=== PATIENT | male | born 1945 | race Caucasian/White ===

== ENCOUNTER 2021-06-14 16:30 | Emergency (ER) | payer MEDICARE, OTHER ==
--- NOTE | 2021-06-14 16:38 | EDM.PDOC ---
ED HPI GENERAL MEDICAL PROBLEM - General Chief Complaint: Trauma Stated Complaint: FALL Time Seen by Provider: 06/14/21 16:38 Source of Information: Reports: Patient - History of Present Illness INITIAL COMMENTS - FREE TEXT/NARRATIVE: Bradford, 75-year-old male, presents by ambulance after he experienced a fall in his basement stairway. States he was carrying 3 baskets/bags of frozen corn to the basement freezer when he was roughly 3 steps from the bottom missing a step and falling. He struck his leg as he went down with his left leg going underneath him as well as the left side of his posterior thoracic cage. He states he bumped his head but that is not of major concern. He has rib pain to deep breath, coughing, and motion. He denies any other contributing factors other than alcohol to which he states he may have had 6 beers today. He is appropriate to my questioning and denies any other contributing factors. Onset: Today, Sudden Duration: Minutes: - Related Data Allergies Allergy/AdvReac Type Severity Reaction Status Date / Time No Known Drug Allergies Allergy NKDA Verified 06/14/21 16:38 Home Meds: Home Meds Aspirin 325 mg PO DAILY 02/01/15 [History] Glucosamine [Glucosamine Sulfate] 500 mg PO DAILY 02/01/15 [History] Lisinopril 1 tab PO DAILY 02/01/15 [History] Metoprolol Succinate [Toprol XL] 25 mg PO DAILY 02/01/15 [History] Multivitamin with Minerals [Multiple Vitamin] 1 tab PO DAILY 02/01/15 [History] Past Medical History HEENT History: Reports: Impaired Vision Cardiovascular History: Reports: Hypertension Respiratory History: Reports: COPD Gastrointestinal History: Reports: Diverticulosis Genitourinary History: Reports: None Musculoskeletal History: Reports: Fracture (ribs in the past) Neurological History: Reports: None Psychiatric History: Reports: None Endocrine/Metabolic History: Reports: None Oncologic (Cancer) History: Reports: None Dermatologic History: Reports: None - Past Imaging History Past Imaging History: Reports: Ultrasound, Xray Social & Family History - Family History Family Medical History: No Pertinent Family History ED ROS GENERAL - Review of Systems Review Of Systems: Comprehensive ROS is negative, except as noted in HPI. ED EXAM, GENERAL - Physical Exam Exam: See Below Free Text/Narrative:: Alert, oriented, in mild painful distress to deep breathing. There is no cyanosis nor pallor noted. HEENT has a small abrasion contusion to the left forehead with no active bleeding nor blood loss noted. His glasses are intact with no damage. EOM is intact. There is trace horizontal nystagmus likely related to his alcohol. Cerumen in the canals but nonobstructive with negative for hemotympanum, negative for any membrane issue, negative for any membrane issue, negative for any membrane issue. Oropharynx is free of any lesions or discharge. Neck is soft supple no lymphadenopathy negative Nexus criteria for cervical spine injury. Thorax is raspy I attribute to his smoking limited inspiration secondary of pain to the left chest wall. I do not appreciate any fremitus nor crepitus to motion but tenderness is noted. Cardiac is S1 is 2 I do not appreciate murmur. No flank pain no abdominal discomfort. There is an abrasion to the left patellar region and a hematoma slightly under the left patella to the lateral aspect of the tibia. there is no discomfort and full range of motion is noted to the extremities. He has no difficulty in the ambulation process and standing in the radiology department for the chest/rib films. Course - Orders/Labs/Meds Orders: Active Orders 24 hr Category Date Time Status Ribs 2V w Chest Lt [CR] Stat Exams 06/14/21 16:49 Ordered DME for Discharge [COMM] Stat Oth 06/14/21 17:32 Ordered Departure - Departure Time of Disposition: 17:39 Disposition: Home, Self-Care 01 Condition: Good Clinical Impression: Closed rib fracture, Multiple contusions, Abrasion, Alcohol use - Discharge Information *PRESCRIPTION DRUG MONITORING PROGRAM REVIEWED*: Not Applicable *COPY OF PRESCRIPTION DRUG MONITORING REPORT IN PATIENT MELISSA: Not Applicable Referrals: PCP,Unknown [Primary Care Provider] - Melissa Wagner PA-C [Physician] - Forms: ED Department Discharge Additional Instructions: Chest x-ray rib x-rays show you have a fracture of the left ribs. You will be placed in a binder to benefit your comfort while you are going home and when you have to be moving about. You have to remove this binder when you sleep as well is when you are in active as it highly increases the risk of pneumonia, especially in a smoker. You just try to decrease your smoking as much as possible. Continue all your medications as you have been directed. You need to apply heat or ice to this for comfort. You need to contact your clinic for follow-up visit in the next week. You should be seen sooner if you should develop an increased cough, fever, or chills, or any other evidence of respiratory concerns including shortness of breath. No further alcohol this evening. - Problem List & Annotations (1) Closed rib fracture SNOMED Code(s): 54104664 Code(s): S22.39XA - FRACTURE OF ONE RIB, UNSP SIDE, INIT FOR CLOS FX Status: Acute Current Visit: Yes (2) Multiple contusions SNOMED Code(s): 349515603 Code(s): T07.XXXA - UNSPECIFIED MULTIPLE INJURIES, INITIAL ENCOUNTER Status: Acute Priority: Medium Current Visit: Yes (3) Abrasion SNOMED Code(s): 494316163 Code(s): T14.8XXA - OTHER INJURY OF UNSPECIFIED BODY REGION, INITIAL ENCOUNTER Status: Acute Priority: Medium Current Visit: Yes (4) Alcohol use SNOMED Code(s): 666194 Code(s): Z72.89 - OTHER PROBLEMS RELATED TO LIFESTYLE Status: Acute Priority: Medium Current Visit: Yes - Problem List Review Problem List Initiated/Reviewed/Updated: Yes - My Orders Last 24 Hours: My Active Orders 06/14/21 16:49 Ribs 2V w Chest Lt [CR] Stat 06/14/21 17:32 DME for Discharge [COMM] Stat - Assessment/Plan Last 24 Hours: My Active Orders 06/14/21 16:49 Ribs 2V w Chest Lt [CR] Stat 06/14/21 17:32 DME for Discharge [COMM] Stat Plan: Chest x-ray rib x-rays show you have a fracture of the left ribs. You will be placed in a binder to benefit your comfort while you are going home and when you have to be moving about. You have to remove this binder when you sleep as well is when you are in active as it highly increases the risk of pneumonia, especially in a smoker. You just try to decrease your smoking as much as possible. Continue all your medications as you have been directed. You need to apply heat or ice to this for comfort. You need to contact your clinic for follow-up visit in the next week. You should be seen sooner if you should develop an increased cough, fever, or chills, or any other evidence of respiratory concerns including shortness of breath. No further alcohol this evening.
--- NOTE | 2021-06-14 17:54 | CR ---
[id number] RAD/RAD Ribs Left W PA Chest EXAM: RAD Ribs Left W PA Chest INDICATION: FALL, RIB PAIN. COMPARISON: None. DISCUSSION: Acute displaced and angulated left third and fifth rib fractures. No pneumothorax or pleural fluid is currently identified. Borderline hyperinflation. The lungs. The heart size. IMPRESSION: 1. Mildly displaced and angulated left third and fifth rib fractures. Brooks Mora MD 06/14/21 [id number] Thank you for allowing us to participate in the care of your patient.
[2021-06-14 18:45] VITALS: BP 135/76; PULSE 70
== END 2021-06-14 18:20 | disposition home or self-care (01) ==
LOC: KA.ED 16:30
DX: S22.42XA Multiple fractures of ribs, left side, initial encounter for closed fracture (principal); S80.02XA Contusion of left knee, initial encounter; S00.83XA Contusion of other part of head, initial encounter; H61.23 Impacted cerumen, bilateral; I10 Essential (primary) hypertension; J44.9 Chronic obstructive pulmonary disease, unspecified; Z79.82 Long term (current) use of aspirin; Z79.899 Other long term (current) drug therapy; Z72.89 Other problems related to lifestyle; W10.9XXA Fall (on) (from) unspecified stairs and steps, initial encounter
CPT/HCPCS: 71101-LT; 99283; 99284-25

== ENCOUNTER 2023-08-28 18:24 | Inpatient (IN) | payer MEDICARE, OTHER ==
[2023-08-28] MEDS ORDERED: Sodium Chloride 0.9% 10 ML Syringe FLUSH PRN (18:36)
[2023-08-28 18:46] LABS: BASOPHILS ABSOLUTE AUTO 0.07 10^3/uL (0.00-0.10); BASOPHILS PERCENT AUTO 0.5 % (0.0-1.0); EOSINOPHILS PERCENT AUTO 17.7 % (1.0-3.0); HEMATOCRIT 48.1 % (40.0-52.0); HEMOGLOBIN 16.5 g/dL (13.0-17.0); IMMATURE GRAN ABSOLUTE AUTO 0.07 10^3/uL (0.00-0.50); IMMATURE GRAN PERCENT AUTO 0.5 % (0.0-5.0); LYMPHOCYTES ABSOLUTE AUTO 1.83 10^3/uL (1.00-4.00); MEAN CORPUSCULAR HEMOGLOBIN 33.5 pg (27.0-31.0); MEAN CORPUSCULAR HGB CONC 34.3 g/dL (32.0-36.0); MEAN CORPUSCULAR VOLUME 97.8 fL (82.0-92.0); MEAN PLATELET VOLUME 8.6 fL (7.4-10.4); MONOCYTES PERCENT AUTO 10.6 % (2.0-8.0); NEUTROPHILS ABSOLUTE AUTO 8.13 10^3/uL (2.50-7.00); NEUTROPHILS PERCENT AUTO 57.7 % (50.0-70.0); PLATELET COUNT,PLT 320 10^3/uL (150-400); RED BLOOD CELL COUNT 4.92 10^6/uL (4.50-6.00); RED CELL DISTRIBUTION WIDTH 12.8 % (11.5-14.5)
[2023-08-28 18:54] LABS: ALANINE AMINOTRANSFERASE,ALT 59 U/L (14-63); ALKALINE PHOSPHATASE 70 U/L (46-116); ANION GAP 16.1 mmol/L (5-15); ASPARTATE AMNIOTRANSFERASE,AST 29 U/L (15-37); BILIRUBIN TOTAL 2.2 mg/dL (0.2-1.0); BLOOD UREA NITROGEN,BUN 7 mg/dL (7-18); CHLORIDE,CL 93 mmol/L (98-107); CREATININE 0.66 mg/dL (0.51-1.17); GLUCOSE RANDOM 111 mg/dL (70-140); POTASSIUM,K 4.1 mmol/L (3.5-5.1); PROTEIN TOTAL,TP 7.9 g/dL (6.4-8.2); SODIUM,NA 129 mmol/L (136-145)
[2023-08-28 19:10] LABS: B-TYPE NATRIURETIC PEPTIDE,BNP 10 pg/mL (0-100)
[2023-08-28 19:23] LABS: ESTIMATED GFR 95 mL/min (>=60)
[2023-08-28] MEDS ORDERED: Sodium Chloride 0.9% 1,000 ML IV ONE ×2 (19:45→21:52)
[2023-08-28] MEDS ORDERED: Losartan 50 MG Tab PO ONE (19:46)
[2023-08-28] MEDS ORDERED: Metoprolol Succinate 25 MG Tab.ER PO ONE (19:47)
[2023-08-28 20:16] LABS: CORONAVIRUS COVID-19 NAA NEGATIVE (NEGATIVE); INFLUENZA A NAA NEGATIVE (NEGATIVE); INFLUENZA B NAA NEGATIVE (NEGATIVE); RESPIRATORY SYNCYTIAL VIR NAA NEGATIVE (NEGATIVE)
[2023-08-28] MEDS ORDERED: Albuterol/Ipratropium 3.0-0.5 MG/3 ML Neb Soln NEB ONE (20:24)
[2023-08-28] MEDS ORDERED: methylPREDNISolone Sodium Succinate 125 MG/2 ML SDV IVPUSH ONE (20:42)
[2023-08-29] MEDS ORDERED: Acetaminophen 325 MG Tab PO PRN (00:04)
[2023-08-29] MEDS ORDERED: Ondansetron 4 MG/2 ML SDV IV PRN (00:04)
[2023-08-29] MEDS: Albuterol/Ipratropium 3.0-0.5 MG/3 ML Neb Soln NEB PRN ×5 (01:12→23:48)
[2023-08-29] MEDS: methylPREDNISolone Sodium Succinate 125 MG/2 ML SDV IVPUSH SCH ×3 (02:58→18:20)
[2023-08-29 07:22] LABS: EOSINOPHILS ABSOLUTE AUTO 0.01 10^3/uL (0.10-0.30); EOSINOPHILS PERCENT AUTO 0.2 % (1.0-3.0); HEMATOCRIT 41.2 % (40.0-52.0); HEMOGLOBIN 14.2 g/dL (13.0-17.0); IMMATURE GRAN ABSOLUTE AUTO 0.03 10^3/uL (0.00-0.50); IMMATURE GRAN PERCENT AUTO 0.6 % (0.0-5.0); LYMPHOCYTES ABSOLUTE AUTO 0.26 10^3/uL (1.00-4.00); LYMPHOCYTES PERCENT AUTO 4.9 % (20.0-40.0); MEAN CORPUSCULAR HEMOGLOBIN 33.8 pg (27.0-31.0); MEAN CORPUSCULAR HGB CONC 34.5 g/dL (32.0-36.0); MEAN CORPUSCULAR VOLUME 98.1 fL (82.0-92.0); MEAN PLATELET VOLUME 8.4 fL (7.4-10.4); MONOCYTES ABSOLUTE AUTO 0.05 10^3/uL (0.10-0.80); MONOCYTES PERCENT AUTO 0.9 % (2.0-8.0); NEUTROPHILS PERCENT AUTO 93.4 % (50.0-70.0); PLATELET COUNT,PLT 254 10^3/uL (150-400); RED CELL DISTRIBUTION WIDTH 12.5 % (11.5-14.5); WHITE BLOOD CELL COUNT,WBC 5.35 10^3/uL (5.00-10.00)
[2023-08-29 07:41] LABS: ANION GAP 12.8 mmol/L (5-15); CALCIUM 8.7 mg/dL (8.7-10.3); CARBON DIOXIDE,CO2 25.7 mmol/L (21.0-32.0); CREATININE 0.64 mg/dL (0.51-1.17); EST CRCL DRUG DOSING (CG) 89.06 mL/min; POTASSIUM,K 4.5 mmol/L (3.5-5.1)
[2023-08-29 07:44] LABS: PROTEIN TOTAL,TP 6.4 g/dL (6.4-8.2)
[2023-08-29 07:45] LABS: A/G RATIO 0.95; ALBUMIN 3.12 g/dL (3.00-4.80); BILIRUBIN DIRECT 0.4 mg/dL (0.0-0.2); BILIRUBIN INDIRECT 1.2 mg/dL; BILIRUBIN TOTAL 1.6 mg/dL (0.2-1.0)
[2023-08-29] MEDS: Aspirin 81 MG Tab.EC PO SCH (08:59)
[2023-08-29] MEDS: Enoxaparin 40 MG/0.4 ML Syringe SUBCUT SCH (08:59)
[2023-08-29] MEDS: Metoprolol Succinate 25 MG Tab.ER PO SCH (09:10)
[2023-08-29] MEDS: Losartan 50 MG Tab PO SCH (09:11)
[2023-08-29] MEDS: amLODIPine 5 MG Tab PO SCH (09:11)
[2023-08-29] MEDS: guaiFENesin/Dextromethorphan 100-10 MG/5 ML Soln 5 ML Cup PO PRN ×2 (19:52→23:48)
[2023-08-29] MEDS ORDERED: Donepezil 10 MG Tab PO SCH (21:00)
[2023-08-30] MEDS: methylPREDNISolone Sodium Succinate 125 MG/2 ML SDV IVPUSH SCH (06:03)
[2023-08-30] MEDS: Albuterol/Ipratropium 3.0-0.5 MG/3 ML Neb Soln NEB PRN (07:31)
[2023-08-30] MEDS: Losartan 50 MG Tab PO SCH (08:29)
[2023-08-30] MEDS: Metoprolol Succinate 25 MG Tab.ER PO SCH (08:30)
[2023-08-30] MEDS: amLODIPine 5 MG Tab PO SCH (08:30)
[2023-08-30] MEDS: Aspirin 81 MG Tab.EC PO SCH (08:30)
[2023-08-30] MEDS: Enoxaparin 40 MG/0.4 ML Syringe SUBCUT SCH (08:30)
[2023-08-30 11:22] VITALS: BP 127/65; PULSE 87
== END 2023-08-30 11:52 | disposition home or self-care (01) | DRG 189 ==
LOC: KA.ED 18:24 → KA.MS 22:53 → UNDOADMIN 23:00
PROVIDERS: ADMIT Internal Medicine; ATTEND Internal Medicine
DX: J96.01 Acute respiratory failure with hypoxia (principal); J44.1 Chronic obstructive pulmonary disease with (acute) exacerbation; E86.0 Dehydration; Z20.822 Contact with and (suspected) exposure to COVID-19; I10 Essential (primary) hypertension; E87.1 Hypo-osmolality and hyponatremia; F17.210 Nicotine dependence, cigarettes, uncomplicated; E87.8 Other disorders of electrolyte and fluid balance, not elsewhere classified; E80.6 Other disorders of bilirubin metabolism; Z79.82 Long term (current) use of aspirin; Z79.899 Other long term (current) drug therapy; Z79.51 Long term (current) use of inhaled steroids; Z98.49 Cataract extraction status, unspecified eye; Z98.890 Other specified postprocedural states; Z11.52 Encounter for screening for COVID-19
CPT/HCPCS: 0241U; 36415; 71045; 80048; 80053; 80076; 83605; 83880; 84484; 85025; 85379; 87040; 87070; 87205; 93005; 93010; 94640; 96361; 96374; 99284; 99285-25; A9270-GY; J1650; J2930; J3490; J7030; J7620-GY; Q3014

== ENCOUNTER 2024-04-04 21:00 | Observation (INO) | payer MEDICARE, OTHER ==
[2024-04-04] MEDS ORDERED: Sodium Chloride 0.9% 10 ML Syringe FLUSH PRN (21:26)
[2024-04-04 21:36] LABS: BASOPHILS ABSOLUTE AUTO 0.05 10^3/uL (0.00-0.10); BASOPHILS PERCENT AUTO 0.5 % (0.0-1.0); EOSINOPHILS ABSOLUTE AUTO 0.79 10^3/uL (0.10-0.30); HEMATOCRIT 46.4 % (40.0-52.0); HEMOGLOBIN 16.6 g/dL (13.0-17.0); IMMATURE GRAN ABSOLUTE AUTO 0.05 10^3/uL (0.00-0.50); IMMATURE GRAN PERCENT AUTO 0.5 % (0.0-5.0); LYMPHOCYTES ABSOLUTE AUTO 1.28 10^3/uL (1.00-4.00); MEAN CORPUSCULAR HEMOGLOBIN 34.3 pg (27.0-31.0); MEAN CORPUSCULAR HGB CONC 35.8 g/dL (32.0-36.0); MEAN CORPUSCULAR VOLUME 95.9 fL (82.0-92.0); MEAN PLATELET VOLUME 8.3 fL (7.4-10.4); MONOCYTES ABSOLUTE AUTO 1.11 10^3/uL (0.10-0.80); MONOCYTES PERCENT AUTO 11.2 % (2.0-8.0); NEUTROPHILS ABSOLUTE AUTO 6.59 10^3/uL (2.50-7.00); NEUTROPHILS PERCENT AUTO 66.8 % (50.0-70.0); PLATELET COUNT,PLT 272 10^3/uL (150-400); RED BLOOD CELL COUNT 4.84 10^6/uL (4.50-6.00); RED CELL DISTRIBUTION WIDTH 12.5 % (11.5-14.5); WHITE BLOOD CELL COUNT,WBC 9.87 10^3/uL (5.00-10.00)
[2024-04-04] MEDS: Albuterol/Ipratropium 3.0-0.5 MG/3 ML Neb Soln NEB ONE (21:45)
[2024-04-04] MEDS: methylPREDNISolone Sodium Succinate 125 MG/2 ML SDV IVPUSH ONE (21:49)
[2024-04-04] MEDS: Sodium Chloride 0.9% 1,000 ML IV ONE (21:49)
[2024-04-04 21:56] LABS: ALANINE AMINOTRANSFERASE,ALT 66 U/L (14-63); ALBUMIN 4.19 g/dL (3.40-5.00); ALKALINE PHOSPHATASE 75 U/L (46-116); ANION GAP 14.6 mmol/L (5-15); ASPARTATE AMNIOTRANSFERASE,AST 41 U/L (15-37); BILIRUBIN TOTAL 1.8 mg/dL (0.2-1.0); BLOOD UREA NITROGEN,BUN 7 mg/dL (7-18); CALCIUM 9.1 mg/dL (8.7-10.3); CARBON DIOXIDE,CO2 24.6 mmol/L (21.0-32.0); CHLORIDE,CL 92 mmol/L (98-107); CREATININE 0.69 mg/dL (0.51-1.17); ESTIMATED GFR 94 mL/min (>=60); GLUCOSE RANDOM 120 mg/dL (70-140); POTASSIUM,K 4.2 mmol/L (3.5-5.1); PROTEIN TOTAL,TP 8.3 g/dL (6.4-8.2); SODIUM,NA 127 mmol/L (136-145)
[2024-04-04 21:59] LABS: B-TYPE NATRIURETIC PEPTIDE,BNP 6 pg/mL (0-100)
[2024-04-04] MEDS: Sodium Chloride 0.9% 1,000 ML IV SCH (23:34)
[2024-04-05] MEDS ORDERED: Acetaminophen 325 MG Tab PO PRN (02:00)
[2024-04-05] MEDS ORDERED: Albuterol/Ipratropium 3.0-0.5 MG/3 ML Neb Soln NEB PRN (02:00)
[2024-04-05] MEDS: Sodium Chloride 0.9% 1,000 ML IV SCH (02:21)
[2024-04-05] MEDS ORDERED: hydrALAZINE 20 MG/ML SDV IVPUSH PRN (03:52)
[2024-04-05 07:28] LABS: BASOPHILS ABSOLUTE AUTO 0.01 10^3/uL (0.00-0.10); BASOPHILS PERCENT AUTO 0.2 % (0.0-1.0); EOSINOPHILS ABSOLUTE AUTO 0.01 10^3/uL (0.10-0.30); EOSINOPHILS PERCENT AUTO 0.2 % (1.0-3.0); HEMOGLOBIN 14.8 g/dL (13.0-17.0); IMMATURE GRAN ABSOLUTE AUTO 0.02 10^3/uL (0.00-0.50); IMMATURE GRAN PERCENT AUTO 0.4 % (0.0-5.0); LYMPHOCYTES ABSOLUTE AUTO 0.34 10^3/uL (1.00-4.00); LYMPHOCYTES PERCENT AUTO 6.8 % (20.0-40.0); MEAN CORPUSCULAR HEMOGLOBIN 33.6 pg (27.0-31.0); MEAN CORPUSCULAR HGB CONC 35.2 g/dL (32.0-36.0); MEAN CORPUSCULAR VOLUME 95.5 fL (82.0-92.0); MEAN PLATELET VOLUME 8.6 fL (7.4-10.4); MONOCYTES ABSOLUTE AUTO 0.05 10^3/uL (0.10-0.80); NEUTROPHILS ABSOLUTE AUTO 4.55 10^3/uL (2.50-7.00); NEUTROPHILS PERCENT AUTO 91.4 % (50.0-70.0); PLATELET COUNT,PLT 252 10^3/uL (150-400); RED CELL DISTRIBUTION WIDTH 12.5 % (11.5-14.5); WHITE BLOOD CELL COUNT,WBC 4.98 10^3/uL (5.00-10.00)
[2024-04-05 07:56] LABS: ALBUMIN 3.42 g/dL (3.40-5.00); ANION GAP 12.4 mmol/L (5-15); BILIRUBIN TOTAL 1.3 mg/dL (0.2-1.0); CALCIUM 8.3 mg/dL (8.7-10.3); CARBON DIOXIDE,CO2 25.2 mmol/L (21.0-32.0); CREATININE 0.64 mg/dL (0.51-1.17); EST CRCL DRUG DOSING (CG) 89.06 mL/min; POTASSIUM,K 4.6 mmol/L (3.5-5.1); PROTEIN TOTAL,TP 7.3 g/dL (6.4-8.2)
[2024-04-05] MEDS: amLODIPine 5 MG Tab PO SCH (08:18)
[2024-04-05] MEDS: Metoprolol Succinate 25 MG Tab.ER PO SCH (08:18)
[2024-04-05] MEDS: predniSONE 20 MG Tab PO SCH (08:19)
[2024-04-05] MEDS: Enoxaparin 40 MG/0.4 ML Syringe SUBCUT SCH (08:19)
[2024-04-05] MEDS: Losartan 50 MG Tab PO SCH (08:19)
[2024-04-05] MEDS: Aspirin 81 MG Tab.EC PO SCH (08:19)
[2024-04-05] MEDS: Formoterol/Mometasone 200-5 MCG 8.8 GM Inhaler INH SCH (08:21)
[2024-04-05] MEDS: methylPREDNISolone Sodium Succinate 40 MG/1 ML SDV IVPUSH SCH (11:29)
[2024-04-05] MEDS: Calcium Carbonate 500 MG Tab.Chew PO PRN (11:29)
[2024-04-05] MEDS: Donepezil 10 MG Tab PO SCH (21:12)
[2024-04-05] MEDS: Menthol Lozenge PO PRN (21:12)
[2024-04-06] MEDS: Pantoprazole 40 MG Tab.CR PO SCH (05:55)
[2024-04-06 07:35] LABS: ALBUMIN 3.24 g/dL (3.40-5.00); ANION GAP 13.5 mmol/L (5-15); BILIRUBIN TOTAL 0.8 mg/dL (0.2-1.0); CALCIUM 8.5 mg/dL (8.7-10.3); CARBON DIOXIDE,CO2 26.7 mmol/L (21.0-32.0); CREATININE 0.68 mg/dL (0.51-1.17); EST CRCL DRUG DOSING (CG) 83.82 mL/min; POTASSIUM,K 4.2 mmol/L (3.5-5.1)
[2024-04-06 11:49] VITALS: BP 158/75; PULSE 89
== END 2024-04-06 11:47 | disposition home or self-care (01) ==
LOC: KA.ED 21:00 → KA.MS 23:30
PROVIDERS: ADMIT Internal Medicine; ATTEND Internal Medicine
DX: J44.1 Chronic obstructive pulmonary disease with (acute) exacerbation (principal); J96.01 Acute respiratory failure with hypoxia; I10 Essential (primary) hypertension; E87.8 Other disorders of electrolyte and fluid balance, not elsewhere classified; E80.6 Other disorders of bilirubin metabolism; E87.1 Hypo-osmolality and hyponatremia; R94.5 Abnormal results of liver function studies; Z79.899 Other long term (current) drug therapy; Z87.891 Personal history of nicotine dependence; Z79.82 Long term (current) use of aspirin
CPT/HCPCS: 36415; 71045; 80053; 83605; 83880; 84484; 85025; 94640; 96361; 96374; 99285-25; A9270-GY; J1650; J2919; J7030; J7512; J7620-GY; Q3014

== ENCOUNTER 2024-08-15 03:26 | Inpatient (IN) | payer MEDICARE, OTHER ==
[2024-08-15] MEDS: Sodium Chloride 0.9% 10 ML Syringe FLUSH PRN (03:57)
[2024-08-15 04:10] LABS: BASOPHILS ABSOLUTE AUTO 0.04 10^3/uL (0.00-0.10); BASOPHILS PERCENT AUTO 0.4 % (0.0-1.0); EOSINOPHILS ABSOLUTE AUTO 1.44 10^3/uL (0.10-0.30); EOSINOPHILS PERCENT AUTO 16.1 % (1.0-3.0); HEMATOCRIT 43.8 % (40.0-52.0); HEMOGLOBIN 15.8 g/dL (13.0-17.0); IMMATURE GRAN ABSOLUTE AUTO 0.04 10^3/uL (0.00-0.50); IMMATURE GRAN PERCENT AUTO 0.4 % (0.0-5.0); LYMPHOCYTES ABSOLUTE AUTO 1.43 10^3/uL (1.00-4.00); MEAN CORPUSCULAR HEMOGLOBIN 34.8 pg (27.0-31.0); MEAN CORPUSCULAR HGB CONC 36.1 g/dL (32.0-36.0); MEAN CORPUSCULAR VOLUME 96.5 fL (82.0-92.0); MEAN PLATELET VOLUME 8.4 fL (7.4-10.4); MONOCYTES ABSOLUTE AUTO 1.06 10^3/uL (0.10-0.80); MONOCYTES PERCENT AUTO 11.9 % (2.0-8.0); NEUTROPHILS ABSOLUTE AUTO 4.93 10^3/uL (2.50-7.00); NEUTROPHILS PERCENT AUTO 55.2 % (50.0-70.0); PLATELET COUNT,PLT 246 10^3/uL (150-400); RED BLOOD CELL COUNT 4.54 10^6/uL (4.50-6.00); RED CELL DISTRIBUTION WIDTH 12.4 % (11.5-14.5); WHITE BLOOD CELL COUNT,WBC 8.94 10^3/uL (5.00-10.00)
[2024-08-15] MEDS: Albuterol/Ipratropium 3.0-0.5 MG/3 ML Neb Soln NEB ONE ×2 (04:18→04:55)
[2024-08-15 04:29] LABS: ALANINE AMINOTRANSFERASE,ALT 40 U/L (14-63); ALBUMIN 4.07 g/dL (3.40-5.00); ALKALINE PHOSPHATASE 69 U/L (46-116); ASPARTATE AMNIOTRANSFERASE,AST 29 U/L (15-37); BILIRUBIN TOTAL 1.7 mg/dL (0.2-1.0); BLOOD UREA NITROGEN,BUN 6 mg/dL (7-18); CALCIUM 8.9 mg/dL (8.7-10.3); CARBON DIOXIDE,CO2 24.9 mmol/L (21.0-32.0); CHLORIDE,CL 90 mmol/L (98-107); GLUCOSE RANDOM 104 mg/dL (70-140); POTASSIUM,K 4.2 mmol/L (3.5-5.1); PROTEIN TOTAL,TP 7.6 g/dL (6.4-8.2)
[2024-08-15] MEDS: methylPREDNISolone Sodium Succinate 125 MG/2 ML SDV IVPUSH ONE (04:31)
[2024-08-15 04:35] LABS: ANION GAP 13.3 mmol/L (5-15); ESTIMATED GFR 93 mL/min (>=60); SODIUM,NA 124 mmol/L (136-145)
[2024-08-15] MEDS: Sodium Chloride 0.9% 1,000 ML IV ONE (04:36)
[2024-08-15] MEDS ORDERED: Albuterol/Ipratropium 3.0-0.5 MG/3 ML Neb Soln NEB PRN (06:33)
[2024-08-15] MEDS ORDERED: Calcium Carbonate 500 MG Tab.Chew PO PRN (06:33)
[2024-08-15] MEDS ORDERED: Acetaminophen 325 MG Tab PO PRN (06:39)
[2024-08-15] MEDS: Omeprazole 20 MG Cap.CR PO SCH (07:33)
[2024-08-15 08:22] LABS: ANION GAP 16.8 mmol/L (5-15); CALCIUM 8.4 mg/dL (8.7-10.3); CARBON DIOXIDE,CO2 21.7 mmol/L (21.0-32.0); CREATININE 0.62 mg/dL (0.51-1.17); EST CRCL DRUG DOSING (CG) 90.4 mL/min; POTASSIUM,K 4.5 mmol/L (3.5-5.1)
[2024-08-15] MEDS ORDERED: Non-Formulary Medication 1 Each (Fluticasone Propion/Salmeterol [Advair 250-50 Diskus] 1 E INH SCH (09:00)
[2024-08-15] MEDS: Enoxaparin 40 MG/0.4 ML Syringe SUBCUT SCH (09:06)
[2024-08-15] MEDS: Multivitamins with Minerals/Iron/Folic Acid/Lycopene Tab PO SCH (09:06)
[2024-08-15] MEDS: Aspirin 81 MG Tab.EC PO SCH (09:07)
[2024-08-15] MEDS: Metoprolol Succinate 25 MG Tab.ER PO SCH (09:14)
[2024-08-15] MEDS: Losartan 50 MG Tab PO SCH (09:15)
[2024-08-15] MEDS: amLODIPine 5 MG Tab PO SCH (09:15)
[2024-08-15] MEDS: Sodium Chloride 0.9% 1,000 ML IV SCH (11:56)
[2024-08-15] MEDS: methylPREDNISolone Sodium Succinate 40 MG/1 ML SDV IVPUSH SCH (13:24)
[2024-08-15] MEDS: Formoterol/Mometasone 200-5 MCG 8.8 GM Inhaler INH SCH (13:24)
[2024-08-15] MEDS: Albuterol/Ipratropium 3.0-0.5 MG/3 ML Neb Soln NEB SCH (16:29)
[2024-08-15 17:14] LABS: ANION GAP 14.7 mmol/L (5-15); CALCIUM 8.5 mg/dL (8.7-10.3); CARBON DIOXIDE,CO2 21.8 mmol/L (21.0-32.0); CREATININE 0.63 mg/dL (0.51-1.17); EST CRCL DRUG DOSING (CG) 88.97 mL/min; POTASSIUM,K 4.5 mmol/L (3.5-5.1)
[2024-08-15] MEDS: Menthol Lozenge PO PRN (18:05)
[2024-08-15] MEDS: Donepezil 10 MG Tab PO SCH (20:26)
[2024-08-16 07:10] LABS: HEMATOCRIT 39.8 % (40.0-52.0); HEMOGLOBIN 14.1 g/dL (13.0-17.0); MEAN CORPUSCULAR HEMOGLOBIN 34.1 pg (27.0-31.0); MEAN CORPUSCULAR HGB CONC 35.4 g/dL (32.0-36.0); MEAN CORPUSCULAR VOLUME 96.1 fL (82.0-92.0); MEAN PLATELET VOLUME 8.9 fL (7.4-10.4); PLATELET COUNT,PLT 223 10^3/uL (150-400); RED BLOOD CELL COUNT 4.14 10^6/uL (4.50-6.00); RED CELL DISTRIBUTION WIDTH 12.4 % (11.5-14.5); WHITE BLOOD CELL COUNT,WBC 8.58 10^3/uL (5.00-10.00)
[2024-08-16 07:19] LABS: ALBUMIN 3.45 g/dL (3.40-5.00); ANION GAP 13.5 mmol/L (5-15); CALCIUM 8.6 mg/dL (8.7-10.3); CARBON DIOXIDE,CO2 24.6 mmol/L (21.0-32.0); CREATININE 0.65 mg/dL (0.51-1.17); EST CRCL DRUG DOSING (CG) 86.23 mL/min; PHOSPHORUS 2.9 mg/dL (2.6-4.7); POTASSIUM,K 4.1 mmol/L (3.5-5.1)
[2024-08-16] MEDS ORDERED: predniSONE 20 MG Tab PO SCH (08:00)
[2024-08-16] MEDS: Azithromycin 500 MG in Sodium Chloride 0.9% 250 ML IV SCH (11:07)
[2024-08-16] MEDS: guaiFENesin/Dextromethorphan 100-10 MG/5 ML Soln 5 ML Cup PO PRN (11:27)
[2024-08-16] MEDS: methylPREDNISolone Sodium Succinate 125 MG/2 ML SDV IVPUSH SCH (20:31)
[2024-08-17] MEDS ORDERED: Benzonatate 100 MG Cap PO PRN (01:41)
[2024-08-17] MEDS: Acetaminophen/Codeine 300-30 MG Tab PO PRN (01:51)
[2024-08-17 07:15] LABS: ALBUMIN 3.35 g/dL (3.40-5.00); ANION GAP 12.5 mmol/L (5-15); CALCIUM 8.6 mg/dL (8.7-10.3); CARBON DIOXIDE,CO2 25.8 mmol/L (21.0-32.0); CREATININE 0.63 mg/dL (0.51-1.17); EST CRCL DRUG DOSING (CG) 88.97 mL/min; PHOSPHORUS 2.7 mg/dL (2.6-4.7); POTASSIUM,K 4.3 mmol/L (3.5-5.1)
[2024-08-17 11:52] VITALS: BP 132/66; PULSE 98
[2024-08-17] MEDS: Azithromycin 250 MG Tab PO ONE (12:54)
== END 2024-08-17 13:15 | disposition home or self-care (01) | DRG 189 ==
LOC: KA.ED 03:26 → KA.MS 05:32
PROVIDERS: ADMIT Physician Assistant Medical; ATTEND Family Medicine
DX: J96.01 Acute respiratory failure with hypoxia (principal); R09.02 Hypoxemia; J44.1 Chronic obstructive pulmonary disease with (acute) exacerbation; E87.1 Hypo-osmolality and hyponatremia; E22.2 Syndrome of inappropriate secretion of antidiuretic hormone; Z66 Do not resuscitate; H54.7 Unspecified visual loss; I10 Essential (primary) hypertension; F10.90 Alcohol use, unspecified, uncomplicated; F03.90 Unspecified dementia, unspecified severity, without behavioral disturbance, psychotic disturbance, mood disturbance, and anxiety; Z79.82 Long term (current) use of aspirin; Z79.899 Other long term (current) drug therapy; Z79.51 Long term (current) use of inhaled steroids; Z87.19 Personal history of other diseases of the digestive system; Z87.81 Personal history of (healed) traumatic fracture; Z98.49 Cataract extraction status, unspecified eye; Z87.891 Personal history of nicotine dependence
CPT/HCPCS: 36415; 71045; 71250; 80048; 80053; 80069; 83605; 83880; 84484; 85025; 85027; 93005; 93010; 94640; 96374; 99284; 99285-25; A9270-GY; J0456; J1650; J2919; J3490; J7030; J7050; J7620-GY; Q3014

== ENCOUNTER 2024-10-26 06:00 | Inpatient (IN) | payer MEDICARE, OTHER ==
[2024-10-26] MEDS: Albuterol/Ipratropium 3.0-0.5 MG/3 ML Neb Soln NEB ONE (06:30)
[2024-10-26] MEDS: Sodium Chloride 0.9% 10 ML Syringe FLUSH PRN (06:37)
[2024-10-26] MEDS: Sodium Chloride 0.9% 1,000 ML IV SCH (06:50)
[2024-10-26 07:00] LABS: BASOPHILS ABSOLUTE AUTO 0.04 10^3/uL (0.00-0.10); BASOPHILS PERCENT AUTO 0.6 % (0.0-1.0); HEMATOCRIT 45.3 % (40.0-52.0); IMMATURE GRAN ABSOLUTE AUTO 0.03 10^3/uL (0.00-0.04); IMMATURE GRAN PERCENT AUTO 0.4 % (0.0-0.4); LYMPHOCYTES ABSOLUTE AUTO 1.07 10^3/uL (1.00-4.00); MEAN CORPUSCULAR HEMOGLOBIN 34.3 pg (27.0-31.0); MEAN CORPUSCULAR HGB CONC 35.3 g/dL (32.0-36.0); MEAN PLATELET VOLUME 8.4 fL (7.4-10.4); MONOCYTES ABSOLUTE AUTO 0.92 10^3/uL (0.10-0.80); MONOCYTES PERCENT AUTO 12.9 % (2.0-8.0); NEUTROPHILS ABSOLUTE AUTO 4.06 10^3/uL (2.50-7.00); NEUTROPHILS PERCENT AUTO 57.1 % (50.0-70.0); PLATELET COUNT,PLT 259 10^3/uL (150-400); RED BLOOD CELL COUNT 4.67 10^6/uL (4.50-6.00); RED CELL DISTRIBUTION WIDTH 12.8 % (11.5-14.5); WHITE BLOOD CELL COUNT,WBC 7.12 10^3/uL (5.00-10.00)
[2024-10-26 07:03] LABS: B-TYPE NATRIURETIC PEPTIDE,BNP 15 pg/mL (0-100)
[2024-10-26 07:07] LABS: ALANINE AMINOTRANSFERASE,ALT 46 U/L (14-63); ALBUMIN 3.92 g/dL (3.40-5.00); ALKALINE PHOSPHATASE 70 U/L (46-116); ASPARTATE AMNIOTRANSFERASE,AST 20 U/L (15-37); BILIRUBIN TOTAL 1.9 mg/dL (0.2-1.0); BLOOD UREA NITROGEN,BUN 7 mg/dL (7-18); CALCIUM 9.2 mg/dL (8.7-10.3); CARBON DIOXIDE,CO2 27.1 mmol/L (21.0-32.0); CHLORIDE,CL 95 mmol/L (98-107); CREATININE 0.81 mg/dL (0.51-1.17); GLUCOSE RANDOM 122 mg/dL (70-140); POTASSIUM,K 4.1 mmol/L (3.5-5.1); PROTEIN TOTAL,TP 7.6 g/dL (6.4-8.2); SODIUM,NA 134 mmol/L (136-145)
[2024-10-26 07:08] LABS: C-REACTIVE PROTEIN < 0.50 mg/dL (0.00-0.50); ESTIMATED GFR 89 mL/min (>=60)
[2024-10-26 07:16] LABS: HCO3 ARTERIAL,POC 22.8 mmol/L (21-28); O2 SATURATION ARTERIAL,POC 97.7 % (94-98); PCO2 ARTERIAL,POC 37 mmHg (35-48); PO2 ARTERIAL,POC 99 mmHg (83-108)
[2024-10-26 07:28] LABS: INFLUENZA A NAA NEGATIVE (NEGATIVE); INFLUENZA B NAA NEGATIVE (NEGATIVE); RESPIRATORY SYNCYTIAL VIR NAA NEGATIVE (NEGATIVE)
[2024-10-26 07:29] LABS: CORONAVIRUS COVID-19 NAA NEGATIVE (NEGATIVE)
[2024-10-26] MEDS: methylPREDNISolone Sodium Succinate 125 MG/2 ML SDV IVPUSH ONE (07:57)
[2024-10-26] MEDS ORDERED: Polyethylene Glycol 3350 Powder 17 GM Packet PO PRN (11:09)
[2024-10-26] MEDS ORDERED: Ondansetron 4 MG/2 ML SDV IV PRN (11:09)
[2024-10-26] MEDS ORDERED: Acetaminophen 325 MG Tab PO PRN (11:09)
[2024-10-26] MEDS ORDERED: Albuterol/Ipratropium 3.0-0.5 MG/3 ML Neb Soln NEB PRN (11:16)
[2024-10-26] MEDS: Metoprolol Succinate 25 MG Tab.ER PO SCH (11:41)
[2024-10-26] MEDS: amLODIPine 5 MG Tab PO SCH (11:41)
[2024-10-26] MEDS: guaiFENesin 600 MG Tab.ER PO SCH (11:42)
[2024-10-26] MEDS: Albuterol/Ipratropium 3.0-0.5 MG/3 ML Neb Soln NEB PRN (11:42)
[2024-10-26] MEDS: Azithromycin 500 MG in Sodium Chloride 0.9% 250 ML IV SCH (12:00)
[2024-10-26] MEDS: methylPREDNISolone Sodium Succinate 40 MG/1 ML SDV IVPUSH SCH (15:53)
[2024-10-26] MEDS: Albuterol/Ipratropium 3.0-0.5 MG/3 ML Neb Soln NEB SCH (17:07)
[2024-10-27 07:30] LABS: EOSINOPHILS ABSOLUTE AUTO 0.02 10^3/uL (0.10-0.30); EOSINOPHILS PERCENT AUTO 0.2 % (1.0-3.0); HEMATOCRIT 42.6 % (40.0-52.0); HEMOGLOBIN 15.1 g/dL (13.0-17.0); IMMATURE GRAN ABSOLUTE AUTO 0.01 10^3/uL (0.00-0.04); IMMATURE GRAN PERCENT AUTO 0.1 % (0.0-0.4); LYMPHOCYTES ABSOLUTE AUTO 0.57 10^3/uL (1.00-4.00); LYMPHOCYTES PERCENT AUTO 5.2 % (20.0-40.0); MEAN CORPUSCULAR HEMOGLOBIN 34.5 pg (27.0-31.0); MEAN CORPUSCULAR HGB CONC 35.4 g/dL (32.0-36.0); MEAN CORPUSCULAR VOLUME 97.3 fL (82.0-92.0); MEAN PLATELET VOLUME 8.3 fL (7.4-10.4); MONOCYTES ABSOLUTE AUTO 0.71 10^3/uL (0.10-0.80); MONOCYTES PERCENT AUTO 6.4 % (2.0-8.0); NEUTROPHILS ABSOLUTE AUTO 9.73 10^3/uL (2.50-7.00); NEUTROPHILS PERCENT AUTO 88.1 % (50.0-70.0); PLATELET COUNT,PLT 248 10^3/uL (150-400); RED BLOOD CELL COUNT 4.38 10^6/uL (4.50-6.00); RED CELL DISTRIBUTION WIDTH 12.6 % (11.5-14.5); WHITE BLOOD CELL COUNT,WBC 11.04 10^3/uL (5.00-10.00)
[2024-10-27 07:45] LABS: ANION GAP 12.3 mmol/L (5-15); CALCIUM 9.5 mg/dL (8.7-10.3); CARBON DIOXIDE,CO2 28.1 mmol/L (21.0-32.0); CREATININE 0.67 mg/dL (0.51-1.17); EST CRCL DRUG DOSING (CG) 83.66 mL/min; POTASSIUM,K 4.4 mmol/L (3.5-5.1)
[2024-10-27] MEDS: Omeprazole 20 MG Cap.CR PO SCH (08:33)
[2024-10-27] MEDS: Losartan 50 MG Tab PO SCH (08:33)
[2024-10-27] MEDS: Aspirin 81 MG Tab.EC PO SCH (08:34)
[2024-10-27] MEDS: Enoxaparin 40 MG/0.4 ML Syringe SUBCUT SCH (08:51)
[2024-10-27] MEDS: methylPREDNISolone Sodium Succinate 125 MG/2 ML SDV IVPUSH ONE (09:12)
[2024-10-27] MEDS: methylPREDNISolone Sodium Succinate 40 MG/1 ML SDV IVPUSH SCH (13:56)
[2024-10-27] MEDS: Menthol Lozenge PO PRN (15:13)
[2024-10-28 07:39] LABS: EOSINOPHILS ABSOLUTE AUTO 0.01 10^3/uL (0.10-0.30); EOSINOPHILS PERCENT AUTO 0.1 % (1.0-3.0); HEMATOCRIT 41.3 % (40.0-52.0); HEMOGLOBIN 14.6 g/dL (13.0-17.0); IMMATURE GRAN ABSOLUTE AUTO 0.03 10^3/uL (0.00-0.04); IMMATURE GRAN PERCENT AUTO 0.3 % (0.0-0.4); MEAN CORPUSCULAR HEMOGLOBIN 34.5 pg (27.0-31.0); MEAN CORPUSCULAR HGB CONC 35.4 g/dL (32.0-36.0); MEAN CORPUSCULAR VOLUME 97.6 fL (82.0-92.0); MEAN PLATELET VOLUME 8.3 fL (7.4-10.4); MONOCYTES PERCENT AUTO 9.6 % (2.0-8.0); NEUTROPHILS ABSOLUTE AUTO 9.56 10^3/uL (2.50-7.00); PLATELET COUNT,PLT 246 10^3/uL (150-400); RED BLOOD CELL COUNT 4.23 10^6/uL (4.50-6.00); RED CELL DISTRIBUTION WIDTH 12.7 % (11.5-14.5)
[2024-10-28 07:59] LABS: CALCIUM 9.3 mg/dL (8.7-10.3); CARBON DIOXIDE,CO2 28.3 mmol/L (21.0-32.0); CREATININE 0.73 mg/dL (0.51-1.17); EST CRCL DRUG DOSING (CG) 76.78 mL/min; POTASSIUM,K 4.3 mmol/L (3.5-5.1)
[2024-10-28] MEDS: methylPREDNISolone Sodium Succinate 40 MG/1 ML SDV IVPUSH SCH (14:54)
[2024-10-28] MEDS: methylPREDNISolone Sodium Succinate 40 MG/1 ML SDV IVPUSH ONE (14:54)
[2024-10-28] MEDS: Furosemide 40 MG/4 ML VIAL IVPUSH ONE (14:54)
[2024-10-28] MEDS: methylPREDNISolone Sodium Succinate 40 MG/1 ML SDV ONE (15:04)
[2024-10-28] MEDS: Furosemide 40 MG/4 ML VIAL ONE (15:04)
[2024-10-29 12:16] VITALS: BP 136/62; PULSE 84
== END 2024-10-29 12:09 | disposition home or self-care (01) | DRG 190 ==
LOC: KA.ED 06:00 → KA.MS 08:19
PROVIDERS: ADMIT Internal Medicine; ATTEND Internal Medicine
DX: J44.1 Chronic obstructive pulmonary disease with (acute) exacerbation (principal); J96.21 Acute and chronic respiratory failure with hypoxia; I10 Essential (primary) hypertension; J40 Bronchitis, not specified as acute or chronic; J44.0 Chronic obstructive pulmonary disease with (acute) lower respiratory infection; H26.9 Unspecified cataract; H54.7 Unspecified visual loss; F10.10 Alcohol abuse, uncomplicated; E87.8 Other disorders of electrolyte and fluid balance, not elsewhere classified; Z99.81 Dependence on supplemental oxygen; Z98.49 Cataract extraction status, unspecified eye; Z98.890 Other specified postprocedural states; Z79.82 Long term (current) use of aspirin; Z79.51 Long term (current) use of inhaled steroids; Z79.899 Other long term (current) drug therapy; Z87.81 Personal history of (healed) traumatic fracture; Z87.891 Personal history of nicotine dependence; Z71.6 Tobacco abuse counseling
CPT/HCPCS: 0241U; 36415; 36600; 71045; 80048; 80053; 82803; 83605; 83735; 83880; 84484; 85025; 85379; 86140; 87040; 87070; 87205; 94640; 96361; 96374; 99223-GT; 99232-GT; 99233-GT; 99239-GT; 99284; 99285-25; A9270-GY; J0456; J1650; J1940; J2919; J7030; J7050; J7620-GY; Q3014

== ENCOUNTER 2024-12-23 22:41 | Emergency (ER) | payer MEDICARE, OTHER ==
[2024-12-23] MEDS: Sodium Chloride 0.9% 10 ML Syringe FLUSH PRN (23:20)
[2024-12-23 23:32] LABS: BASOPHILS ABSOLUTE AUTO 0.06 10^3/uL (0.00-0.10); BASOPHILS PERCENT AUTO 0.5 % (0.0-1.0); EOSINOPHILS PERCENT AUTO 5.3 % (1.0-3.0); HEMATOCRIT 45.8 % (40.0-52.0); HEMOGLOBIN 15.7 g/dL (13.0-17.0); IMMATURE GRAN ABSOLUTE AUTO 0.05 10^3/uL (0.00-0.04); IMMATURE GRAN PERCENT AUTO 0.4 % (0.0-0.4); LYMPHOCYTES ABSOLUTE AUTO 1.09 10^3/uL (1.00-4.00); LYMPHOCYTES PERCENT AUTO 9.7 % (20.0-40.0); MEAN CORPUSCULAR HEMOGLOBIN 33.3 pg (27.0-31.0); MEAN CORPUSCULAR HGB CONC 34.3 g/dL (32.0-36.0); MEAN PLATELET VOLUME 8.4 fL (7.4-10.4); MONOCYTES ABSOLUTE AUTO 1.16 10^3/uL (0.10-0.80); MONOCYTES PERCENT AUTO 10.3 % (2.0-8.0); NEUTROPHILS ABSOLUTE AUTO 8.27 10^3/uL (2.50-7.00); NEUTROPHILS PERCENT AUTO 73.8 % (50.0-70.0); PLATELET COUNT,PLT 285 10^3/uL (150-400); RED BLOOD CELL COUNT 4.72 10^6/uL (4.50-6.00); RED CELL DISTRIBUTION WIDTH 12.4 % (11.5-14.5); WHITE BLOOD CELL COUNT,WBC 11.23 10^3/uL (5.00-10.00)
[2024-12-23 23:49] LABS: ALANINE AMINOTRANSFERASE,ALT 50 U/L (14-63); ALBUMIN 3.75 g/dL (3.40-5.00); ALKALINE PHOSPHATASE 76 U/L (46-116); ANION GAP 12.2 mmol/L (5-15); ASPARTATE AMNIOTRANSFERASE,AST 26 U/L (15-37); BILIRUBIN TOTAL 1.3 mg/dL (0.2-1.0); BLOOD UREA NITROGEN,BUN 14 mg/dL (7-18); CALCIUM 9.4 mg/dL (8.7-10.3); CHLORIDE,CL 95 mmol/L (98-107); CREATININE 0.83 mg/dL (0.51-1.17); GLUCOSE RANDOM 105 mg/dL (70-140); POTASSIUM,K 4.2 mmol/L (3.5-5.1); PROTEIN TOTAL,TP 7.1 g/dL (6.4-8.2); SODIUM,NA 131 mmol/L (136-145)
[2024-12-23 23:50] LABS: ESTIMATED GFR 88 mL/min (>=60)
[2024-12-23 23:54] LABS: B-TYPE NATRIURETIC PEPTIDE,BNP 9 pg/mL (0-100)
[2024-12-24] MEDS: Albuterol/Ipratropium 3.0-0.5 MG/3 ML Neb Soln NEB ONE (00:09)
[2024-12-24] MEDS: methylPREDNISolone Sodium Succinate 125 MG/2 ML SDV IVPUSH ONE (00:13)
[2024-12-24] MEDS: predniSONE 20 MG Tab PO ONE (00:33)
[2024-12-24 02:32] VITALS: PULSE 114
[2024-12-24 02:35] VITALS: BP 162/88
== END 2024-12-24 00:39 | disposition home or self-care (01) ==
LOC: KA.ED 22:41
DX: J44.1 Chronic obstructive pulmonary disease with (acute) exacerbation (principal); I10 Essential (primary) hypertension; Z79.899 Other long term (current) drug therapy; Z79.82 Long term (current) use of aspirin; Z79.51 Long term (current) use of inhaled steroids
CPT/HCPCS: 71045; 80053; 83605; 83880; 84484; 85025; 93010; 94640; 96374; 99284; 99285-25; J2919; J7512; J7620-GY